=== PATIENT | male | born 1965 | race Caucasian/White ===

== ENCOUNTER 2017-06-17 15:44 | Emergency (ER) | payer OTHER, BC ==
[2017-06-17] MEDS ORDERED: Propofol 200 MG/20 ML SDV IV ONE (15:45)
[2017-06-17 15:58] VITALS: BP 109/71
--- NOTE | 2017-06-17 15:59 | EDM.PDOC ---
ED HPI GENERAL MEDICAL PROBLEM - General Chief Complaint: Lower Extremity Injury/Pain Stated Complaint: BY AMBULANCE Time Seen by Provider: 06/17/17 15:59 Source of Information: Reports: Patient, EMS, EMS Notes Reviewed, RN, RN Notes Reviewed History Limitations: Reports: No Limitations - History of Present Illness INITIAL COMMENTS - FREE TEXT/NARRATIVE: Pt presents to ER per [facility] with c/o right leg pain. 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 He states he did not hit his head, and did not lose consciousness. He denies pain anywhere else. Onset: Today, Sudden Location: Reports: Lower Extremity, Right Severity: Severe Improves with: Reports: None Worsens with: Reports: None Associated Symptoms: Reports: No Other Symptoms Right Leg Pain Score (Numeric/FACES): 6 - Related Data Allergies Allergy/AdvReac Type Severity Reaction Status Date / Time Penicillins Allergy Rash Verified 06/17/17 15:55 Past Medical History - Past Health History Medical/Surgical History: Denies Medical/Surgical History Social & Family History - Tobacco Use Smoking Status *Q: Never Smoker Second Hand Smoke Exposure: No - Alcohol Use Days Per Week of Alcohol Use: 0 - Recreational Drug Use Recreational Drug Use: No - Living Situation & Occupation Living situation: Reports: Alone Occupation: Disabled Review of Systems - Review of Systems Review Of Systems: ROS reveals no pertinent complaints other than HPI. ED EXAM, GENERAL - Physical Exam Exam: See Below Exam Limited By: No Limitations General Appearance: Alert, WD/WN, No Apparent Distress Eye Exam: Bilateral Eye: Normal Inspection Ears: Normal External Exam, Hearing Grossly Normal Nose: Normal Inspection Throat/Mouth: Normal Inspection, Normal Voice, No Airway Compromise Head: Atraumatic, Normocephalic Neck: Normal Inspection, Supple, Non-Tender, Full Range of Motion Respiratory/Chest: No Respiratory Distress, Lungs Clear, Normal Breath Sounds, No Accessory Muscle Use, Chest Non-Tender Cardiovascular: Normal Peripheral Pulses, Regular Rate, Rhythm, No Edema, No Gallop, No JVD, No Murmur, No Rub Peripheral Pulses: 2+: Radial (L), Radial (R), Dorsalis Pedis (L), Dorsalis Pedis (R) GI/Abdominal: Normal Bowel Sounds, Soft, Non-Tender, Pelvis Stable (Male) Exam: Deferred Rectal (Males) Exam: Deferred Back Exam: Normal Inspection, Full Range of Motion Extremities: Other (obvious deformity of the right femur/hip area. Cannot move the leg, can wiggle toes, pedal pulse present, CMS intact) Neurological: Alert, Oriented, Normal Cognition Psychiatric: Normal Affect, Normal Mood Skin Exam: Warm, Dry, Intact, Normal Color, No Rash Lymphatic: No Adenopathy Course - Vital Signs Last Recorded V/S: Last Vital Signs Temp 96.3 F 06/17/17 15:57 Pulse 98 06/17/17 15:57 Resp 18 06/17/17 15:57 BP 109/71 06/17/17 15:57 Pulse Ox 98 06/17/17 15:57 - Orders/Labs/Meds Orders: Active Orders 24 hr Category Date Time Status Ramos Catheter Insertion [Insert Urinary Catheter] [OM. Care 06/17/17 16:45 Ordered PC] Q24H Peripheral IV Care [RC] . DIRECTED Care 06/17/17 16:00 Active Urinary Catheter Assessment [RC] ASDIRECTED Care 06/17/17 16:33 Active Peripheral IV Insertion Adult [OM.PC] Stat Oth 06/17/17 15:59 Ordered Labs: Laboratory Tests 06/17/17 Range/Units 17:10 WBC 10.1 H (5.0-10.0) 10^3/uL RBC 5.75 (4.6-6.2) 10^6/uL Hgb 16.4 (14.0-18.0) g/dL Hct 47.8 (40.0-54.0) % MCV 83.1 (80-100) fL MCH 28.5 (27.0-34.0) pg MCHC 34.3 (33.0-35.0) g/dL Plt Count 197 (150-450) 10^3/uL Neut % (Auto) 78.1 H (42.2-75.2) % Lymph % (Auto) 15.6 L (20.5-50.1) % [place] % (Auto) 5.1 (2-8) % Eos % (Auto) 0.2 L (1.0-3.0) % Baso % (Auto) 1.0 (0.0-1.0) % Meds: Medications Discontinued Medications Generic Name Dose Route Start Last Admin Trade Name Freq PRN Reason Stop Dose Admin Hydromorphone HCl 1 mg 06/17/17 16:02 06/17/17 16:08 Dilaudid IVPUSH 06/17/17 16:03 1 mg ONETIME ONE Administration Sodium Chloride 1,000 mls @ 999 mls/hr 06/17/17 17:20 06/17/17 17:27 Normal Saline IV 06/17/17 18:20 999 mls/hr .BOLUS ONE Administration Ondansetron HCl 4 mg 06/17/17 17:45 Zofran IV 06/17/17 17:46 ONETIME ONE Sodium Chloride 10 ml 06/17/17 15:59 06/17/17 16:11 Saline Flush FLUSH 10 ml ASDIRECTED PRN Administration Keep Vein Open - Radiology Interpretation Free Text/Narrative:: CT of hip/pelvis: Complex fracture of the proximal right femur. Degenerative changes of both hip joints. See rad report CT Results Date: 06/17/17 CT Results Time: 16:09 Departure - Departure Time of Disposition: 16:35 Disposition: DC/Tfer to Acute Hospital 02 Condition: Fair, Serious Clinical Impression: Closed right femoral fracture Qualifiers: Encounter type: initial encounter Femur location: proximal epiphysis Fracture alignment: displaced Qualified Code(s): S72.021A - Displaced fracture of epiphysis (separation) (upper) of right femur, initial encounter for closed fracture - Discharge Information Referrals: PCP,Unobtain [Primary Care Provider] - Forms: ED Department Discharge, Interfacility Transfer EMTALA - My Orders Last 24 Hours: My Active Orders 06/17/17 15:59 Peripheral IV Insertion Adult [OM.PC] Stat 06/17/17 16:00 Peripheral IV Care [RC] . DIRECTED 06/17/17 16:33 Urinary Catheter Assessment [RC] ASDIRECTED 06/17/17 16:45 Ramos Catheter Insertion [Insert Urinary Catheter] [OM.PC] Q24H - Assessment/Plan Last 24 Hours: My Active Orders 06/17/17 15:59 Peripheral IV Insertion Adult [OM.PC] Stat 06/17/17 16:00 Peripheral IV Care [RC] . DIRECTED 06/17/17 16:33 Urinary Catheter Assessment [RC] ASDIRECTED 06/17/17 16:45 Ramos Catheter Insertion [Insert Urinary Catheter] [OM.PC] Q24H
[2017-06-17] MEDS ORDERED: HYDROmorphone 1 MG/ML Syringe IVPUSH ONE (16:02)
[2017-06-17] MEDS: Sodium Chloride 0.9% 10 ML Syringe FLUSH PRN ×2 (16:09→16:11)
[2017-06-17] MEDS ORDERED: Sodium Chloride 0.9% 1,000 ML IV ONE (17:20)
[2017-06-17] MEDS ORDERED: Ondansetron 4 MG/2 ML SDV IV ONE (17:45)
== END 2017-06-17 17:49 ==
LOC: DL.ED 15:44
DX: S72.021A Displaced fracture of epiphysis (separation) (upper) of right femur, initial encounter for closed fracture (principal); W00.0XXA Fall on same level due to ice and snow, initial encounter; Z88.0 Allergy status to penicillin
CPT/HCPCS: 36415; 51702; 72192; 73501; 85025; 96374; 99284; J1170; J2704; J7030; J7050

== ENCOUNTER 2017-10-15 15:43 | Emergency (ER) | payer BC, OTHER ==
[2017-10-15] MEDS ORDERED: Lactulose Soln 10 GM/15 ML 30 ML UD Cup PO ONE (16:55)
--- NOTE | 2017-10-15 17:39 | EDM.PDOC ---
Scribed by Jodi Brown 10/15/17 1739 for Bolivar Deleon MD ED HPI GENERAL MEDICAL PROBLEM - General Chief Complaint: Gastrointestinal Problem Stated Complaint: [id number] CONSTIPATED Time Seen by Provider: 10/15/17 16:22 Source of Information: Reports: Patient, RN, RN Notes Reviewed History Limitations: Reports: No Limitations - History of Present Illness INITIAL COMMENTS - FREE TEXT/NARRATIVE: Patient presents with complaint of constipation, unable to have a bowel movement for the past 48 hours. Denies abdominal pain, nausea or vomiting. He has tried multiple over the counter stool softeners and laxatives without relief. . Onset Date: 10/13/17 Location: Reports: Abdomen Severity: Moderate Improves with: Reports: None Worsens with: Reports: None Associated Symptoms: Reports: No Other Symptoms - Related Data Allergies Allergy/AdvReac Type Severity Reaction Status Date / Time Penicillins Allergy Rash Verified 10/15/17 15:49 Home Meds: Home Meds . [Unable to Verify Home Med List] 10/15/17 [History] Past Medical History - Past Health History Medical/Surgical History: Denies Medical/Surgical History HEENT History: Reports: Impaired Vision Other HEENT History: wears glasses Cardiovascular History: Reports: None Respiratory History: Reports: None Gastrointestinal History: Reports: None Genitourinary History: Reports: None Musculoskeletal History: Reports: Fracture Neurological History: Reports: None Psychiatric History: Reports: None Endocrine/Metabolic History: Reports: Diabetes, Type II Hematologic History: Reports: None Immunologic History: Reports: None Oncologic (Cancer) History: Reports: None Dermatologic History: Reports: None - Infectious Disease History Infectious Disease History: Reports: None - Past Surgical History Other Neurological Surgeries/Procedures: plate in the neck from an accident in may 3 years ago Other Musculoskeletal Surgeries/Procedures:: plate the neck Social & Family History - Family History Family Medical History: Noncontributory - Tobacco Use Smoking Status *Q: Never Smoker Second Hand Smoke Exposure: No - Caffeine Use Caffeine Use: Reports: Coffee, Soda - Alcohol Use Days Per Week of Alcohol Use: 0 - Recreational Drug Use Recreational Drug Use: No - Living Situation & Occupation Living situation: Reports: Alone Occupation: Disabled ED ROS GENERAL - Review of Systems Review Of Systems: ROS reveals no pertinent complaints other than HPI. ED EXAM, GI/ABD - Physical Exam Exam: See Below Exam Limited By: No Limitations General Appearance: Alert, WD/WN, No Apparent Distress Head: Atraumatic, Normocephalic Neck: Normal Inspection, Supple, Non-Tender, Full Range of Motion Respiratory/Chest: No Respiratory Distress Cardiovascular: Normal Peripheral Pulses, Regular Rate, Rhythm, No Edema, No Gallop, No JVD, No Murmur, No Rub GI/Abdominal Exam: Normal Bowel Sounds, Soft, No Distention, Tender (mild to moderate generalized tenderness with no peritoneal signs.). No: Guarding, Rigid , Rebound (Male) Exam: Deferred Rectal (Males) Exam: Deferred Neurological: Alert, Oriented, Normal Cognition, Other (no acute deficits) Psychiatric: Normal Affect, Normal Mood Skin Exam: Warm, Dry, Intact, Normal Color, No Rash Course - Vital Signs Last Recorded V/S: Last Vital Signs Temp 36.3 C 10/15/17 15:46 Pulse 102 H 10/15/17 15:46 Resp 18 10/15/17 15:46 BP 161/88 H 10/15/17 15:46 Pulse Ox 100 10/15/17 15:46 - Orders/Labs/Meds Orders: Active Orders 24 hr Category Date Time Status Enema [RC] ASDIRECTED Care 10/15/17 16:58 Active Abdomen 2V AP Upright Decub [CR] Urgent Exams 10/15/17 16:31 Taken Meds: Medications Discontinued Medications Generic Name Dose Route Start Last Admin Trade Name Freq PRN Reason Stop Dose Admin Lactulose 20 gm 10/15/17 16:55 10/15/17 16:59 Cephulac PO 10/15/17 16:56 20 gm ONETIME ONE Administration - Radiology Interpretation Free Text/Narrative:: X-ray abdomen: No acute process. See rad report. Departure - Departure Time of Disposition: 18:00 Disposition: Home, Self-Care 01 Condition: Good Clinical Impression: Constipation Qualifiers: Constipation type: unspecified constipation type Qualified Code(s): K59.00 - Constipation, unspecified - Discharge Information Instructions: Constipation, Adult, [id number] Forms: ED Department Discharge Additional Instructions: RX: Lactulose syrup 10mg/15ml. High fiber diet with lots of fruits and vegetables. Drink plenty of water. Follow up in clinic in 2 days if not improved. - My Orders Last 24 Hours: My Active Orders 10/15/17 16:31 Abdomen 2V AP Upright Decub [CR] Urgent 10/15/17 16:58 Enema [RC] ASDIRECTED - Assessment/Plan Last 24 Hours: My Active Orders 10/15/17 16:31 Abdomen 2V AP Upright Decub [CR] Urgent 10/15/17 16:58 Enema [RC] ASDIRECTED I have read and agree with the documentation that has been completed regarding this visit. By signing this record, I attest that the documentation was completed in my physical presence and is an accurate record of the encounter.
[2017-10-15 17:44] VITALS: BP 156/84
== END 2017-10-15 18:45 | disposition home or self-care (01) ==
LOC: DL.ED 15:43
DX: K59.00 Constipation, unspecified (principal); E11.9 Type 2 diabetes mellitus without complications; Z88.0 Allergy status to penicillin
CPT/HCPCS: 74021; 99283; A9270

== ENCOUNTER 2017-11-11 18:23 | Emergency (ER) | payer BC ==
[2017-11-11 18:52] VITALS: BP 134/81
--- NOTE | 2017-11-11 19:07 | EDM.PDOC ---
ED HPI GENERAL MEDICAL PROBLEM - General Chief Complaint: Gastrointestinal Problem Stated Complaint: CONSTIPATION Time Seen by Provider: 11/11/17 19:07 Source of Information: Reports: Patient History Limitations: Reports: No Limitations - History of Present Illness INITIAL COMMENTS - FREE TEXT/NARRATIVE: feels constipated just like few weeks ago. was here and Tx with enema and knows he needs it again. - Related Data Allergies Allergy/AdvReac Type Severity Reaction Status Date / Time Penicillins Allergy Rash Verified 11/11/17 18:52 Home Meds: Home Meds . [Unable to Verify Home Med List] 10/15/17 [History] Past Medical History - Past Health History Medical/Surgical History: Denies Medical/Surgical History HEENT History: Reports: Impaired Vision Other HEENT History: wears glasses Cardiovascular History: Reports: None Respiratory History: Reports: None Gastrointestinal History: Reports: Chronic Constipation Genitourinary History: Reports: None Musculoskeletal History: Reports: Fracture Neurological History: Reports: None Psychiatric History: Reports: None Endocrine/Metabolic History: Reports: Diabetes, Type II Hematologic History: Reports: None Immunologic History: Reports: None Oncologic (Cancer) History: Reports: None Dermatologic History: Reports: None - Infectious Disease History Infectious Disease History: Reports: None - Past Surgical History Other Neurological Surgeries/Procedures: plate in the neck from an accident in may 3 years ago Other Musculoskeletal Surgeries/Procedures:: plate the neck Social & Family History - Family History Family Medical History: Noncontributory - Tobacco Use Smoking Status *Q: Never Smoker Second Hand Smoke Exposure: No - Caffeine Use Caffeine Use: Reports: Coffee, Soda - Alcohol Use Days Per Week of Alcohol Use: 0 - Recreational Drug Use Recreational Drug Use: No - Living Situation & Occupation Living situation: Reports: Alone Occupation: Disabled ED ROS GENERAL - Review of Systems Review Of Systems: ROS reveals no pertinent complaints other than HPI. ED EXAM, GI/ABD - Physical Exam Exam: See Below Exam Limited By: No Limitations General Appearance: Alert, WD/WN, Mild Distress, Other ([place]) Ears: Hearing Grossly Normal Throat/Mouth: Normal Voice, No Airway Compromise Head: Atraumatic Neck: Non-Tender, Full Range of Motion Respiratory/Chest: No Respiratory Distress Cardiovascular: Regular Rate, Rhythm GI/Abdominal Exam: Soft, Tender, Other (mild periumb discomfort with hyper BS). No: Distended, Guarding, Rigid, Rebound Neurological: Alert, Oriented, Normal Cognition, Normal Gait, No Motor/Sensory Deficits Psychiatric: Flat Affect Skin Exam: Warm, Dry, Normal Color Lymphatic: No Adenopathy Course - Vital Signs Last Recorded V/S: Last Vital Signs Temp 36.6 C 11/11/17 18:48 Pulse 91 11/11/17 18:48 Resp 18 11/11/17 18:48 BP 134/81 11/11/17 18:48 Pulse Ox 97 11/11/17 18:48 - Orders/Labs/Meds Orders: Active Orders 24 hr Category Date Time Status Enema [RC] ASDIRECTED Care 11/11/17 19:19 Active - Re-Assessments/Exams Free Text/Narrative Re-Assessment/Exam: 11/11/17 20:08 enema till results Departure - Departure Time of Disposition: 20:22 Disposition: Home, Self-Care 01 Condition: Good Clinical Impression: Constipation Qualifiers: Constipation type: slow transit constipation Qualified Code(s): K59.01 - Slow transit constipation - Discharge Information Instructions: Constipation, Adult, [id number] Forms: ED Department Discharge Additional Instructions: 1) take warm prune juice 2) see clinic for GI consult for constipation problem 3) try MIRALAX - My Orders Last 24 Hours: My Active Orders 11/11/17 19:19 Enema [RC] ASDIRECTED - Assessment/Plan Last 24 Hours: My Active Orders 11/11/17 19:19 Enema [RC] ASDIRECTED
== END 2017-11-11 20:24 | disposition home or self-care (01) ==
LOC: DL.ED 18:23
DX: K59.01 Slow transit constipation (principal); E11.9 Type 2 diabetes mellitus without complications; Z88.0 Allergy status to penicillin
CPT/HCPCS: 74018; 99283

== ENCOUNTER 2018-10-15 11:51 | Inpatient (IN) | payer BC ==
[2018-10-15] MEDS ORDERED: Ondansetron 4 MG/2 ML SDV IVPUSH PRN (12:15)
[2018-10-15] MEDS ORDERED: [UNRECOGNIZED DRUG - OTHER] SUBCUT SCH (12:30)
[2018-10-15] MEDS ORDERED: INSULIN GLARG HUMAN REC ANALOG SUBCUT SCH (12:30)
--- NOTE | 2018-10-15 12:45 | PCM.HP ---
H&P History of Present Illness - General Date of Service: 10/15/18 Admit Problem/Dx: Admission Diagnosis/Problem Admission Diagnosis/Problem Sepsis Source of Information: Patient History Limitations: Reports: No Limitations - History of Present Illness Initial Comments - Free Text/Narative: Patient is a 52-year-old male with past medical history of diabetes, HLD. He is a direct admit from [facility] for evaluation of sepsis. Patient reports he was well until Monday when he started having fever and chills on and off. This was associated with mild right upper quadrant. He has one episode of diarrhea on Monday. He denied nausea, vomiting but has dry heaves. He denies cough. He denies dysuria, increased urinary frequency. Reports his appetite has been poor since Monday. He has not noticed any jaundice, skin rash. This morning he was very weak and decided to go to the clinic. At the clinic patient was noted to be febrile and tachycardic. Labs revealed; WBC 20.4 with left shift, hemoglobin 15.6, platelet 200, criteria 1.3, serum glucose 278, alkaline phosphatase 119, AST/driscoll in 105/114, TB 6.1. UA was positive for UTI. Hospitalists was consulted for admission for further evaluation and management. Onset of Symptoms: Reports: Gradual Duration of Symptoms: Reports: Day(s): Location: Reports: Abdomen Quality: Reports: Dull Severity: Moderate Improves with: Reports: None Worsens with: Reports: None Associated Symptoms: Reports: No Other Symptoms - Related Data Allergies/Adverse Reactions: Allergies Allergy/AdvReac Type Severity Reaction Status Date / Time Penicillins Allergy Rash Verified 10/15/18 12:23 Home Medications: Home Meds Insulin Glarg,Human.Rec.Analog [Lantus Solostar] 40 units SUBCUT DAILY 10/15/18 [History] Lactulose [Constulose] 30 ml PO DAILY PRN 10/15/18 [History] glipiZIDE [Glipizide ER] 5 mg PO ACBREAKFAST 10/15/18 [History] metFORMIN HCl [Metformin HCl] 1,000 mg BID 10/15/18 [History] Past Medical History - Past Health History Medical/Surgical History: Denies Medical/Surgical History HEENT History: Reports: Impaired Vision Other HEENT History: wears glasses Cardiovascular History: Reports: None Respiratory History: Reports: None Gastrointestinal History: Reports: Chronic Constipation Genitourinary History: Reports: None Musculoskeletal History: Reports: Fracture Neurological History: Reports: None Psychiatric History: Reports: None Endocrine/Metabolic History: Reports: Diabetes, Type II Hematologic History: Reports: None Immunologic History: Reports: None Oncologic (Cancer) History: Reports: None Dermatologic History: Reports: None - Infectious Disease History Infectious Disease History: Reports: None - Past Surgical History Other Neurological Surgeries/Procedures: plate in the neck from an accident in may 3 years ago Other Musculoskeletal Surgeries/Procedures:: plate the neck Social & Family History - Family History Family Medical History: Noncontributory - Caffeine Use Caffeine Use: Reports: Coffee, Soda - Living Situation & Occupation Living situation: Reports: Alone Occupation: Disabled H&P Review of Systems - Review of Systems: Review Of Systems: See Below General: Reports: No Symptoms HEENT: Reports: No Symptoms Pulmonary: Reports: No Symptoms Cardiovascular: Reports: No Symptoms Gastrointestinal: Reports: No Symptoms Genitourinary: Reports: No Symptoms Musculoskeletal: Reports: No Symptoms Skin: Reports: No Symptoms Psychiatric: Reports: No Symptoms Neurological: Reports: No Symptoms Hematologic/Lymphatic: Reports: No Symptoms Immunologic: Reports: No Symptoms Exam - Exam Exam: See Below - Vital Signs Vital Signs: Last Vital Signs Temp 102.2 F H 10/15/18 12:22 Pulse 116 H 10/15/18 12:22 Resp 20 10/15/18 12:22 BP 154/76 H 10/15/18 12:22 Pulse Ox 95 10/15/18 12:22 Weight: 293 lb 12.8 oz - Exam Quality Assessment: DVT Prophylaxis General: Alert, Oriented, 4 HEENT: PERRLA, Hearing Intact, Mucosa Moist & [place], Nares Patent, Normal Nasal Septum, Posterior Pharynx Clear, Conjunctiva Clear, EOMI, EACs Clear, TMs Clear Neck: Supple, Trachea Midline, 2 Lungs: Clear to Auscultation, Normal Respiratory Effort Cardiovascular: Regular Rate, Regular Rhythm GI/Abdominal Exam: Normal Bowel Sounds, Soft, Non-Tender, No Organomegaly, No Distention, No Abnormal Bruit, No Mass, Pelvis Stable (Male) Exam: No Hernia, Normal Inspection, Normal Prostate, Circumcised Rectal (Males) Exam: Normal Exam, Normal Rectal Tone, Prostate Normal Back Exam: Normal Inspection, Full Range of Motion, NT Extremities: Normal Inspection, Normal Range of Motion, Non-Tender, No Pedal Edema, Normal Capillary Refill Skin: Warm, Dry, Intact Neurological: Cranial Nerves Intact, Reflexes Equal Bilateral Neuro Extensive - Mental Status: Alert, Oriented x3, Normal Mood/Affect, Normal Cognition Neuro Extensive - Motor, Sensory, Reflexes: CN II-XII Intact, Normal Gait, Normal Reflexes Psychiatric: Alert, Normal Affect, Normal Mood - Problem List (1) Sepsis SNOMED Code(s): 37677378 ICD Code: A41.9 - SEPSIS, UNSPECIFIED ORGANISM Status: Acute Current Visit: Yes (2) 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 SNOMED Code(s): 93586886, 62369769 ICD Code: E11.9 - TYPE 2 DIABETES MELLITUS WITHOUT COMPLICATIONS Status: Acute Current Visit: Yes (3) Type 2 diabetes mellitus SNOMED Code(s): 92204655 ICD Code: E11.9 - TYPE 2 DIABETES MELLITUS WITHOUT COMPLICATIONS Status: Acute Current Visit: Yes (4) Abnormal liver function tests SNOMED Code(s): 750694768 ICD Code: R94.5 - ABNORMAL RESULTS OF LIVER FUNCTION STUDIES Status: Acute Current Visit: Yes (5) UTI (urinary tract infection) SNOMED Code(s): 14401174 ICD Code: N39.0 - URINARY TRACT INFECTION, SITE NOT SPECIFIED Status: Acute Current Visit: Yes Problem List Initiated/Reviewed/Updated: Yes Orders Last 24hrs: Active Orders 24 hr Category Date Time Status Patient Status [ADT] Routine ADT 10/15/18 12:15 Active Ambulate [RC] ASDIRECTED Care 10/15/18 12:15 Active Blood Glucose Check, Bedside [RC] QIDACANDBED Care 10/15/18 12:15 Active Notify Provider Vital Signs [RC] ASDIRECTED Care 10/15/18 12:16 Active Oxygen Therapy [RC] PRN Care 10/15/18 12:15 Active VTE/DVT Education [RC] PER UNIT ROUTINE Care 10/15/18 12:15 Active Vital Signs [RC] Q4H Care 10/15/18 12:15 Active Consistent Carbohydrate Diet [DIET] Diet 10/15/18 Lunch Active Chest 2V [CR] Routine Exams 10/15/18 12:15 Ordered BASIC METABOLIC PANEL,BMP [CHEM] AM Lab 10/16/18 05:11 Ordered BASIC METABOLIC PANEL,BMP [CHEM] Routine Lab 10/15/18 12:28 Ordered CBC WITH AUTO DIFF [HEME] AM Lab 10/16/18 05:11 Ordered CBC WITH AUTO DIFF [HEME] Routine Lab 10/15/18 12:28 Ordered CULTURE BLOOD [BC] Stat Lab 10/15/18 12:21 Ordered CULTURE BLOOD [BC] Stat Lab 10/15/18 12:21 Ordered CULTURE SPUTUM + SMEAR [RM] Stat Lab 10/15/18 12:15 Ordered CULTURE URINE [RM] Stat Lab 10/15/18 12:15 Ordered HEPATIC FUNCTION PANEL,HFP [CHEM] AM Lab 10/16/18 05:11 Ordered HEPATIC FUNCTION PANEL,HFP [CHEM] Routine Lab 10/15/18 12:28 Ordered MAGNESIUM [CHEM] Stat Lab 10/15/18 12:15 Ordered PHOSPHORUS [CHEM] Stat Lab 10/15/18 12:15 Ordered Heparin Sodium Med 10/15/18 12:15 Ordered 5,000 units SUBCUT Q12H Insulin Glarg,Human.Rec.Analog [Lantus Solostar] Med 10/16/18 09:00 Ordered 40 units SUBCUT DAILY Insulin Lispro [HumaLOG] Med 10/15/18 18:00 Ordered See Protocol SUBCUT TIDMEALS Meropenem [Merrem] 500 mg Med 10/15/18 14:00 Ordered Sodium Chloride 0.9% [Normal Saline] 100 ml IV Q8HR Ondansetron [Zofran] Med 10/15/18 12:15 Ordered 4 mg IVPUSH Q6H PRN Sodium Chloride 0.9% [Normal Saline] 1,000 ml Med 10/15/18 12:15 Ordered IV ASDIRECTED Blood Culture x2 Reflex Set [OM.PC] Stat Oth 10/15/18 12:15 Ordered Resuscitation Status Routine Resus Stat 10/15/18 12:15 Ordered Medication Orders Heparin Sodium (Porcine) (Heparin Sodium) 5,000 units SUBCUT Q12H CATR[place]O Sodium Chloride (Normal Saline) 1,000 mls @ 125 mls/hr IV ASDIRECTED [place]O Meropenem 500 mg/ Sodium (Chloride) 100 mls @ 200 mls/hr IV Q8HR [place]O Insulin Human Lispro (Humalog) 0 unit SUBCUT TIDMEALS CATRACHO; Protocol Non-Formulary Medication (Insulin Glarg,Human.Rec.Analog [Lantus Solostar]) 40 units SUBCUT DAILY [place] Ondansetron HCl (Zofran) 4 mg IVPUSH Q6H PRN PRN Reason: Nausea/Vomiting Assessment/Plan Comment:: Sepsis due to urinary tract infection The patient presented with weakness, fever and chills UA shows evidence of DVT or Admit patient to general medical floors Monitor vitals IV fluids Urine cx, blood cx, cxr IV meropenem. Patient allergic to penicillin UTI UA shows UTI Urine cx IV abx as above Abnormal liver function test Etiologic unclear. Abdomen benign on exam RUQ ultrasound Viral hepatitis Monitor LFTs DM-II Uncontrolled Lantus plus SSI POC glucose 4x daily HLD Continue home medication
[2018-10-15 13:21] LABS: ANION GAP 10.3; CHLORIDE,CL 102 mmol/L (101-111); SODIUM,NA 129 mmol/L (135-145)
[2018-10-15] MEDS: Sodium Chloride 0.9% 1,000 ML IV SCH ×2 (13:28→20:18)
[2018-10-15] MEDS ORDERED: Sodium Chloride 0.9% 10 ML Syringe FLUSH PRN (13:33)
[2018-10-15] MEDS ORDERED: Meropenem 500 MG in Sodium Chloride 0.9% 100 ML IV SCH (14:00)
[2018-10-15] MEDS ORDERED: Acetaminophen 325 MG Tab PO PRN (14:55)
[2018-10-15] MEDS ORDERED: Potassium Chloride 20 MEQ in Premix Bag 1 BAG IV ONE (16:00)
[2018-10-15] MEDS: Phosphorus #1 250 MG Tab PO SCH ×2 (17:07→20:15)
[2018-10-15] MEDS ORDERED: Insulin Lispro 100 Units/ML 3 ML Vial SUBCUT SCH (18:00)
[2018-10-15 19:47] VITALS: BP 139/71
--- NOTE | 2018-10-15 20:04 | PCM.DCSUM1 ---
Discharge Summary - Hospital Course Free Text/Narrative:: 53 yo M with PMH of DM, HLD who presents with fever, mild RUQ pain, found to have leucocytosis, Tmax 105, and imaging of the abdomen showed a distended gall bladder and gall stones. CBD 10mm on imaging and LFTs elevated with TB 5.5 and DB 2.0. He was started on Meropenem and IV fluids. Given the strong concern for sepsis, ascending cholangitis in this patient, we called the nearest center offering ERCP ([facility]) and discussed the case and the patient was accepted as a transfer. - Discharge Data Discharge Date: 10/15/18 Discharge Disposition: DC/Tfer to Acute Hospital 02 Condition: Critical - Discharge Plan Home Medications: Home Meds Insulin Glarg,Human.Rec.Analog [Lantus Solostar] 40 units SUBCUT DAILY 10/15/18 [History] Lactulose [Constulose] 30 ml PO DAILY PRN 10/15/18 [History] glipiZIDE [Glipizide ER] 5 mg PO ACBREAKFAST 10/15/18 [History] metFORMIN HCl [Metformin HCl] 1,000 mg BID 10/15/18 [History] - Discharge Summary/Plan Comment DC Time >30 min.: Yes - Patient Data Vitals - Most Recent: Last Vital Signs Temp 38.0 C 10/15/18 19:36 Pulse 101 H 10/15/18 19:36 Resp 28 H 10/15/18 19:36 BP 139/71 10/15/18 19:36 Pulse Ox 96 10/15/18 19:36 Weight - Most Recent: 133.265 kg I&O - Last 24 hours: Intake & Output 10/15/18 10/15/18 10/15/18 06:59 14:59 22:59 Intake Total 200 Balance 200 Lab Results - Last 24 hrs: Laboratory Results - last 24 hr 10/15/18 10/15/18 10/15/18 Range/Units 12:47 12:47 12:47 WBC 19.7 H (5.0-10.0) 10^3/uL RBC 5.45 (4.6-6.2) 10^6/uL Hgb 15.2 (14.0-18.0) g/dL Hct 44.5 (40.0-54.0) % MCV 81.7 (80-100) fL MCH 27.9 (27.0-34.0) pg MCHC 34.2 (33.0-35.0) g/dL Plt Count 188 (150-450) 10^3/uL Neut % (Auto) 92.5 H (42.2-75.2) % Lymph % (Auto) 2.1 L (20.5-50.1) % [place] % (Auto) 5.2 (2-8) % Eos % (Auto) 0.0 L (1.0-3.0) % Baso % (Auto) 0.2 (0.0-1.0) % Sodium 129 L (135-145) mmol/L Potassium 3.3 L (3.6-5.0) mmol/L Chloride 102 (101-111) mmol/L Carbon Dioxide 20.0 L (21.0-31.0) mmol/L Anion Gap 10.3 BUN 15 (7-18) mg/dL Creatinine 0.9 (0.6-1.3) mg/dL Est Cr Clr Drug Dosing 119.63 mL/min Estimated GFR (MDRD) > 60 Glucose 196 H (74-105) mg/dL POC Glucose (70-105) mg/dl Calcium 8.4 (8.4-10.2) mg/dl Phosphorus 1.6 L (2.5-4.6) mg/dL Magnesium 1.8 (1.8-2.5) mg/dL Total Bilirubin 5.5 H (0.2-1.0) mg/dL Direct Bilirubin 2.0 H (0.0-0.2) mg/dL Indirect Bilirubin 3.5 AST 86 H (10-42) IU/L ALT 92 H (10-60) IU/L Alkaline Phosphatase 140 H (42-121) IU/L Total Protein 7.4 (6.7-8.2) g/dl Albumin 3.3 (3.2-5.5) g/dl Globulin 4.1 Albumin/Globulin Ratio 0.80 /11/30 Range/Units 16:35 WBC (5.0-10.0) 10^3/uL RBC (4.6-6.2) 10^6/uL Hgb (14.0-18.0) g/dL Hct (40.0-54.0) % MCV (80-100) fL MCH (27.0-34.0) pg MCHC (33.0-35.0) g/dL Plt Count (150-450) 10^3/uL Neut % (Auto) (42.2-75.2) % Lymph % (Auto) (20.5-50.1) % [place] % (Auto) (2-8) % Eos % (Auto) (1.0-3.0) % Baso % (Auto) (0.0-1.0) % Sodium (135-145) mmol/L Potassium (3.6-5.0) mmol/L Chloride (101-111) mmol/L Carbon Dioxide (21.0-31.0) mmol/L Anion Gap BUN (7-18) mg/dL Creatinine (0.6-1.3) mg/dL Est Cr Clr Drug Dosing mL/min Estimated GFR (MDRD) Glucose (74-105) mg/dL POC Glucose 154 H (70-105) mg/dl Calcium (8.4-10.2) mg/dl Phosphorus (2.5-4.6) mg/dL Magnesium (1.8-2.5) mg/dL Total Bilirubin (0.2-1.0) mg/dL Direct Bilirubin (0.0-0.2) mg/dL Indirect Bilirubin AST (10-42) IU/L ALT (10-60) IU/L Alkaline Phosphatase (42-121) IU/L Total Protein (6.7-8.2) g/dl Albumin (3.2-5.5) g/dl Globulin Albumin/Globulin Ratio Med Orders - Current: Current Medications Acetaminophen (Tylenol) 650 mg PO Q6H PRN PRN Reason: Pain/Fever Last Admin: 10/15/18 15:20 Dose: 650 mg Heparin Sodium (Porcine) (Heparin Sodium) 5,000 units SUBCUT Q12HR [place] Sodium Chloride (Normal Saline) 1,000 mls @ 150 mls/hr IV ASDIRECTED [place] Last Admin: 10/15/18 13:28 Dose: 150 mls/hr Meropenem 500 mg/ Sodium (Chloride) 100 mls @ 200 mls/hr IV Q8HR [place] Last Admin: 10/15/18 13:29 Dose: 200 mls/hr Insulin Glargine (Lantus) 40 unit SUBCUT DAILY [facility] Insulin Human Lispro (Humalog) 0 unit SUBCUT TIDMEALS [facility]; Protocol Last Admin: 10/15/18 17:07 Dose: 2 units Ondansetron HCl (Zofran) 4 mg IVPUSH Q6H PRN PRN Reason: Nausea/Vomiting Sodium Chloride (Saline Flush) 10 ml FLUSH ASDIRECTED PRN PRN Reason: Keep Vein Open Sodium Phosphate (Neutra-Phos) 250 mg PO QID [facility] Last Admin: 10/15/18 17:07 Dose: 250 mg Discontinued Medications Potassium Chloride 20 meq/ (Premix) 100 mls @ 50 mls/hr IV ONETIME ONE Stop: 10/15/18 17:59 Last Admin: 10/15/18 17:06 Dose: 50 mls/hr Non-Formulary Medication (Insulin Glarg,Human.Rec.Analog [Lantus Solostar]) 40 units SUBCUT DAILY [facility] Last Admin: 10/15/18 13:12 Dose: Not Given Simethicone (Simethicone) 160 mg PO ONETIME ONE Stop: 10/15/18 21:01 Simethicone (Simethicone) 80 mg PO ONETIME ONE Stop: 10/16/18 06:01
[2018-10-15] MEDS ORDERED: Meropenem 500 MG in Sodium Chloride 0.9% 50 ML IV SCH (20:17)
[2018-10-15] MEDS ORDERED: Simethicone 80 MG Tab.Chew PO ONE (21:00)
[2018-10-15] MEDS ORDERED: Heparin Sodium 5,000 Units/ML Vial SUBCUT SCH (21:00)
[2018-10-16] MEDS ORDERED: Simethicone 80 MG Tab.Chew PO ONE (06:00)
[2018-10-16] MEDS ORDERED: Insulin Glarg,Human.Rec.Analog 100 UNIT/ML ML SUBCUT SCH (09:00)
== END 2018-10-15 21:05 | DRG 720 ==
LOC: DL.MS 11:51 → UNDOADMIN 11:51 → DL.MS 20:00 → UNDODISIN 21:05
PROVIDERS: ADMIT Student in an Organized Health Care Education/Training Program; ATTEND Student in an Organized Health Care Education/Training Program
DX: A41.9 Sepsis, unspecified organism (principal); N39.0 Urinary tract infection, site not specified; E11.9 Type 2 diabetes mellitus without complications; E78.5 Hyperlipidemia, unspecified; K80.10 Calculus of gallbladder with chronic cholecystitis without obstruction; H54.7 Unspecified visual loss; K59.09 Other constipation; R94.5 Abnormal results of liver function studies; B19.9 Unspecified viral hepatitis without hepatic coma; Z79.4 Long term (current) use of insulin; Z79.899 Other long term (current) drug therapy; Z88.0 Allergy status to penicillin
CPT/HCPCS: 36415; 71046; 76705; 80048; 80074; 80076; 82962; 83735; 84100; 85025; 87040; 87077; 87086; 87186; A9270-GY; J1644; J1815; J2185; J3480; J7030; J7050

== ENCOUNTER 2020-05-04 19:56 | Emergency (ER) | payer BC ==
[2020-05-04] MEDS ORDERED: Tetracaine HCl/PF 0.5% 4 ML Bottle EYERT ONE (21:05)
[2020-05-04] MEDS ORDERED: Fluorescein 1 MG Ophth Strip EYERT ONE (21:05)
[2020-05-04 21:06] VITALS: BP 170/93; PULSE 85
[2020-05-04] MEDS ORDERED: Ciprofloxacin 0.3% Ophth Soln 5 ML Bottle ONE (22:26)
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
== END 2020-05-04 22:32 | disposition home or self-care (01) ==
LOC: DL.ED 19:56
DX: H10.9 Unspecified conjunctivitis (principal); E11.9 Type 2 diabetes mellitus without complications; Z88.0 Allergy status to penicillin; Z79.4 Long term (current) use of insulin
CPT/HCPCS: 99283; A9270

== ENCOUNTER 2020-07-13 10:04 | Emergency (ER) | payer BC ==
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
[2020-07-13 10:29] VITALS: BP 164/60; PULSE 94
--- NOTE | 2020-07-13 10:43 | CR ---
PROCEDURE INFORMATION: Exam: XR Left Knee Exam date and time: 07/13/2020 10:26 AM Age: 55 years old Clinical indication: Pain; Knee; Left; Additional info: Left knee pain with swelling TECHNIQUE: Imaging protocol: XR Left knee. Views: 3 views. COMPARISON: No relevant prior studies available. FINDINGS: Bones/joints: Multiple views of the left knee demonstrate no evidence for fracture. There is normal mineralization and alignment. Joint spaces are well preserved. Soft tissues: Normal. IMPRESSION: 1. No acute osseous abnormality present.
== END 2020-07-13 11:00 | disposition home or self-care (01) ==
LOC: DL.ED 10:04
DX: S86.912A Strain of unspecified muscle(s) and tendon(s) at lower leg level, left leg, initial encounter (principal); E11.9 Type 2 diabetes mellitus without complications; Z79.4 Long term (current) use of insulin; Z88.0 Allergy status to penicillin; X58.XXXA Exposure to other specified factors, initial encounter
CPT/HCPCS: 73562-LT; 99282; 99283-25

== ENCOUNTER 2024-02-03 14:39 | Emergency (ER) | payer BC ==
[2024-02-03 23:50] VITALS: BP 126/77
[2024-02-04] MEDS: Ketorolac 30 MG/ML SDV IM ONE (00:32)
[2024-02-04 01:55] VITALS: PULSE 84
== END 2024-02-04 01:51 | disposition home or self-care (01) ==
LOC: DL.ED 14:39
DX: S86.912A Strain of unspecified muscle(s) and tendon(s) at lower leg level, left leg, initial encounter (principal); E11.9 Type 2 diabetes mellitus without complications; Z88.0 Allergy status to penicillin; Z79.4 Long term (current) use of insulin; Z79.899 Other long term (current) drug therapy; Z90.49 Acquired absence of other specified parts of digestive tract; X58.XXXA Exposure to other specified factors, initial encounter
CPT/HCPCS: 73562-LT; 96372; 99283; J1885

== ENCOUNTER 2024-08-20 06:22 | Day surgery (SDC) | payer BC ==
[2024-08-20] MEDS: Dextrose 5%-0.45% NaCl 1,000 ML IV SCH (06:48)
[2024-08-20] MEDS ORDERED: Midazolam 1 MG/ML 2 ML SDV IV ONE (07:18)
[2024-08-20] MEDS ORDERED: Midazolam 1 MG/ML 2 ML SDV ONE (07:18)
[2024-08-20] MEDS ORDERED: fentaNYL 100 MCG/2 ML SDV IV ONE (07:18)
[2024-08-20] MEDS ORDERED: fentaNYL 100 MCG/2 ML SDV ONE (07:18)
[2024-08-20] MEDS: fentaNYL 100 MCG/2 ML SDV IV ONE ×2 (07:30)
[2024-08-20] MEDS: Midazolam 1 MG/ML 2 ML SDV IV ONE ×4 (07:30→07:37)
[2024-08-20 08:49] VITALS: BP 115/53; PULSE 67
== END 2024-08-20 09:15 | disposition home or self-care (01) ==
LOC: DL.ENDO 06:22
PROVIDERS: ATTEND Internal Medicine Gastroenterology
DX: Z12.11 Encounter for screening for malignant neoplasm of colon (principal); D12.2 Benign neoplasm of ascending colon; E11.9 Type 2 diabetes mellitus without complications; D64.9 Anemia, unspecified; Z79.899 Other long term (current) drug therapy; Z88.0 Allergy status to penicillin
CPT/HCPCS: 45385; J2250; J3010; J7799